=== PATIENT | female | born 1985 | race Two or more races ===

== ENCOUNTER 2016-07-05 14:54 | Inpatient (IN) | payer MEDICAID ==
[2016-07-05] VITALS (7 sets, daily range): BP systolic 116–117; BP diastolic 59–60; PULSE 80–88; RESP 18; TEMP 98–98.1
[~2016-07-05 14:54] MED LIST: PREN1MIS11 PO
--- NOTE | 2016-07-05 15:32 | PD ---
HPI Chief Complaint Low YESENIA from Clinic Date Seen: Jul 05, 2016 Travel History International Travel<30 Days: No Contact w/Intl Traveler<30Days: No History of Present Illness HPI Mrs. Urias is a 30 y/o with gestational diabetes presenting at 36/6 with a low YESENIA from the [facility]. The patient states that she was sent over from clinic after ultrasound showed a BPP of 6 and 8 with an YESENIA of 4 cm. complicated by gestational diabetes. Patient has a log showing blood sugars checked 3 times a day ranging from 90-120 on average. She states that her blood sugars controlled with diet and exercise and is not requiring medication. She reports the baby is active and denies any loss of fluid, vaginal discharge, or bleeding. He has no other complaints and denies any fevers, chills, shortness of breath, chest pain, NVD, or calf tenderness. Of note, patient is Danish-speaking only. History Past Medical History Narrative Medical None Obstetric History Obstetric History 1-Gestational diabetes, classic C section at 42 weeks for failure to progress Past Surgical History Narrative Surgical Classical Family History Narrative Family History Denies significant family history Social History Alcohol Use: No Tobacco Use: No Substance Abuse: No Allergies-Medications (Allergen,Severity, Reaction): Coded Allergies: No Known Allergies (Verified , 06/28/16) Home Meds Active Scripts Butoconazole Nitrate (One Dose (Gynazole-1)2 % Cre Sample #1 Prov:NereidaShanna CNM [employer] P[employer]ER 06/28/16 Reported Medications W/O Vit A W/ Fe Carbo Pack (Citranatal 90 Dha Pack)90-1 & 300 Mg Pack1 Ea PO DAILY #6 BLISTER Ref 0 30 day supply. 05/08/16 Review of Systems General / Constitutional: No: Fever Eyes: No: Blurred Vision HENT: No: Headaches Cardiovascular: No: Chest Pain or Discomfort, Palpitations Respiratory: No: Short of Breath Gastrointestinal: No: Nausea, Vomiting, Diarrhea Genitourinary: No: Dysuria, Discharge, Vaginal Bleeding Musculoskeletal: No: Weakness Skin: No Rash Neurologic: No: Headache Psychiatric: No: Substance Abuse Endocrine: No: Polydipsia Hematologic/Lymphatic: No Lymph Node Enlargement Physical Exam Narrative GENERAL: Well-nourished, well-developed patient. SKIN: Warm and dry. HEAD: Normocephalic and atraumatic. EYES: No scleral icterus. No injection or drainage. ENT: No nasal drainage noted. Mucous membranes pink. Airway patent. NECK: Supple, trachea midline. No JVD. CARDIOVASCULAR: Regular rate and rhythm without murmurs, gallops, or rubs. RESPIRATORY: Breath sounds equal bilaterally. No accessory muscle use. BREASTS: Bilateral exam showed no masses , no retractions, no nipple discharge. ABDOMEN/GI: Abdomen soft, non-tender, bowel sounds present, no rebound, no guarding Gravid to 36 weeks size FHT's: Category: 1 Baseline: 140 Reactive: + Variability: Moderate Decels: None EXTREMITIES: No cyanosis or edema. BACK: Nontender without obvious deformity. No CVA tenderness. NEUROLOGICAL: Awake and alert. Motor and sensory grossly within normal limits. Five out of 5 muscle strength in all muscle groups. Normal speech. Data Data Vital Signs Reviewed: Yes [facility] Medical Record Reviewed: Yes Plan Mrs. Urias is a 30 y/o with gestational diabetes presenting at 36/6 with a low YESENIA from the [facility] 1. IUP at 36w -Continue antepartum care -Category 1 tracing, reassuring -Encouraged oral hydration -Continue PNV -GBS negative 2. Oligohydramnios -[facility] US: BPP 6/8 with YESENIA of 4cm, appropriate anatomy -OB team will admit for observation with plans to re-scan on 07/09/16. At that time clinical decision will be made to proceed with vs routine antepartum care. -CBC, CMP, UA, type/scree, and hold clot ordered 3. Gestational Diabetes -Patient reported BG between 90-120, currently diet controlled -BG checks TID SDW: Dr. Irving Diagnosis Diagnosis: Primary Impression: 36 weeks gestation of Additional Impression: Oligohydramnios Randell Tolentino MD R1 Jul 05, 2016 15:32
[2016-07-05] MEDS ORDERED: SODIUM CHLORIDE 0.9% FLUSH 5 ML FLUSH IVF PRN (15:45)
[2016-07-05] MEDS ORDERED: ONDANSETRON ODT 4 MG TAB PO PRN (15:45)
[2016-07-05] MEDS ORDERED: ACETAMINOPHEN 325 MG TAB PO PRN (15:45)
[2016-07-05] MEDS ORDERED: ONDANSETRON HCL 4 MG/2 ML VIAL IV PRN (15:45)
[2016-07-05] MEDS ORDERED: ALUMINUM/MAGNESIUM/SIMETH 30 ML CUP PO PRN (15:45)
--- NOTE | 2016-07-05 16:18 | HHI.HP ---
HPI Chief Complaint She sent over for evaluation of low amniotic fluid Date Seen: Jul 05, 2016 Travel History International Travel<30 Days: No Contact w/Intl Traveler<30Days: No Known Affected Area: No History of Present Illness HPI Patient is 30-year-old previous with gestational diabetes diet controlled is referred over after BPP done and in the clinic showed an amniotic fluid index of 4,BPP itself was 6 of 8 with a reactive NST would be 8 of 10. She denies complaints or problems ,no contractions bleeding or rupture the membranes. Her NST is reactive today Para: 1 : 2 History Past Medical History Narrative Medical Gestational diabetes diet controlled Obstetric History Obstetric History Previous Past Surgical History Narrative Surgical Previous classical Social History Alcohol Use: No Tobacco Use: No Substance Abuse: No Allergies-Medications (Allergen,Severity, Reaction): Coded Allergies: No Known Allergies (Verified , 06/28/16) Home Meds Active Scripts Butoconazole Nitrate (One Dose (Gynazole-1)2 % Cre Sample #1 Prov:Shanna Padron CNM [employer] TECHNICIAN 06/28/16 Reported Medications W/O Vit A W/ Fe Carbo Pack (Citranatal 90 Dha Pack)90-1 & 300 Mg Pack1 Ea PO DAILY #6 BLISTER Ref 0 30 day supply. 05/08/16 Review of Systems General / Constitutional: No: Fever, Weight Gain, Chills, Other Physical Exam Narrative GENERAL: Well-nourished, well-developed patient. SKIN: Warm and dry. HEAD: Normocephalic and atraumatic. EYES: No scleral icterus. No injection or drainage. ENT: No nasal drainage noted. Mucous membranes pink. Airway patent. NECK: Supple, trachea midline. No JVD. CARDIOVASCULAR: Regular rate and rhythm without murmurs, gallops, or rubs. RESPIRATORY: Breath sounds equal bilaterally. No accessory muscle use. BREASTS: Bilateral exam showed no masses , no retractions, no nipple discharge. ABDOMEN/GI: Abdomen soft, non-tender, bowel sounds present, no rebound, no guarding Gravid to [36-] weeks size Fundal Height: [-35 cm] GENITOURINARY: External Genitalia: intact and normal in appearance BUS glands: [-] Cervix: [-] Not checked today Dilatation: [-] Effacement: [-] Station: [-] Presentation: [-vtx] Membranes: [intact ] Uterine Contractions: [-none] FHT's: Category: [1-] Baseline: [144-] Reactive: [-yes] Variability: [-mod] Decels: [none-] EXTREMITIES: No cyanosis or edema. BACK: Nontender without obvious deformity. No CVA tenderness. NEUROLOGICAL: Awake and alert. Motor and sensory grossly within normal limits. Five out of 5 muscle strength in all muscle groups. Normal speech. Data Data Orders Admit To Inpatient (07/05/16 ) Diet Regular Basic (07/05/16 Dinner) Vital Signs (Adult) VONDA.QSHIFT (07/05/16 15:36) ^ Heart (07/05/16 15:36) Activity Bed Rest With Brp (07/05/16 15:36) Complete Blood Count With Diff (07/05/16 15:36) Urinalysis - C+S If Indicated (07/05/16 15:36) Bedside Glucose . ORDERED (07/05/16 15:36) Acetaminophen (Tylenol) (07/05/16 15:45) Ixkgjsas-Obj-Ubpom-Iron Prenat (Stuartna (07/06/16 09:00) Al-Mag Hy-Si 40-40-4 Mg/Ml Liq (Mag-Al P (07/05/16 15:45) Sodium Chloride 0.9% Flush (Ns Flush) (07/05/16 21:00) Sodium Chloride 0.9% Flush (Ns Flush) (07/05/16 15:45) Ondansetron Odt (Zofran Odt) (07/05/16 15:45) Ondansetron Inj (Zofran Inj) (07/05/16 15:45) Ob/Psych Drug Screen, Urine (07/05/16 15:36) Hold Clot (07/05/16 15:36) Comprehensive Metabolic Panel (07/05/16 15:36) Type And Screen (07/05/16 15:36) Inpatient Certification (07/05/16 ) Ob (2e) Additional Admit Info (07/05/16 16:07) Labs amnisure neg Assessment/Plan Assessment and Plan Patient is a 30-year-old previous 1[ that was a classical] 36 weeks and 6 days now referred over for oligohydramnios YESENIA was 4 on biophysical today. The biophysical itself was 6 of 8 on ultrasound and her NST is reactive, she is not sedrick with patient having oligohydramnios on ultrasound was felt that she needed to be a an inpatient for monitoring purposes and recommend observation over the next 72 hours and at that point repeat her YESENIA is same or lower than would proceed with repeat section , if it is improved then consider discharge home with follow-up closely of the amniotic fluid Real Irving II, MD Jul 05, 2016 16:18
[2016-07-05 17:05] LABS: AUTOMATED NEUTROPHIL # 4.3 TH/MM3 (1.8-7.7); BASOPHIL % 0.2 % (0.0-2.0); EOSINOPHIL # 0.1 TH/MM3 (0-0.4); EOSINOPHIL % 0.9 % (0.0-4.0); HEMATOCRIT 34.9 % (35.0-46.0); LYMPHOCYTE # 1.6 TH/MM3 (1.0-4.8); MEAN CELL VOLUME 72.7 FL (80.0-100.0); MEAN CORPUSCULAR HEMOGLOBIN 23.7 PG (27.0-34.0); MEAN CORPUSCULAR HGB CONC 32.6 % (32.0-36.0); MONO % 6.1 % (0.0-8.0); NEUT % 67.8 % (16.0-70.0); PLATELET COUNT 205 TH/MM3 (150-450); RED CELL DISTRIBUTION WIDTH 18.7 % (11.6-17.2); WHITE BLOOD COUNT 6.3 TH/MM3 (4.0-11.0)
[2016-07-05 17:08] LABS: HEMO FLAGS AUTO DIFF
[2016-07-05 17:11] LABS: BLOOD, URINE NEG (NEG); COMMENT (UR) CULT NOT INDICATED; CULTURE IF INDICATED CULT NOT INDICATED; GLUCOSE,URINE NEG (NEG); KETONE, URINE NEG (NEG); NITRITE,URINE NEG (NEG); PH, URINE 5.5 (5.0-8.5); SQUAMOUS EPITHELIAL CELL URINE 2 /hpf (0-5); URINE COLOR LIGHT-YELLOW (YELLW/STRAW)
[2016-07-05 17:22] LABS: AMPHETAMINE, URINE NEG (NEG); BARBITURATES, URINE NEG (NEG); COCAINE, URINE NEG (NEG)
[2016-07-05 17:37] LABS: ALT (GPT) 16 U/L (10-53); ANION GAP 11 MEQ/L (5-15); AST (GOT) 10 U/L (15-37); BICARBONATE 22.4 MEQ/L (21.0-32.0); BLOOD UREA NITROGEN 8 MG/DL (7-18); CHLORIDE 108 MEQ/L (98-107); GLOMERULAR FILTRATION RATE 189 ML/MIN (>89); POTASSIUM 3.3 MEQ/L (3.5-5.1); SODIUM (NA) 141 MEQ/L (136-145)
[2016-07-05 17:39] LABS: ALKALINE PHOSPHATASE 173 U/L (45-117); TOTAL BILIRUBIN ADULT 0.2 MG/DL (0.2-1.0)
[2016-07-05 18:51] LABS: OVALOCYTES 1+ (NORMAL); PLATELET ESTIMATE SMEAR NORMAL (NORMAL); PLATELET MORPHOLOGY NORMAL (NORMAL); SCAN/DIFF AUTO DIFF CONFIRMED; SPHEROCYTES 1+ (NORMAL)
[2016-07-05] MEDS: SODIUM CHLORIDE 0.9% FLUSH 5 ML FLUSH IVF SCH (21:00)
[2016-07-06] VITALS (8 sets, daily range): BP systolic 100–118; BP diastolic 57–72; PULSE 62–88; RESP 16–18; TEMP 97.5–98.9; O2SAT 97–99
[2016-07-06 02:29] LABS: CHLAMYDIA PCR NOT DETECTED (NOT DETECT); NEISSERIA PCR NOT DETECTED (NOT DETECT)
[2016-07-06] MEDS: MULTIVIT/MIN/PREN/FOL AC/IRON PRENATAL TAB PO SCH (08:10)
--- NOTE | 2016-07-06 08:51 | HHI.HP ---
History & Physical H&P HPI Chief Complaint Low YESENIA from Clinic Date Seen: Jul 05, 2016 Travel History International Travel<30 Days: No Contact w/Intl Traveler<30Days: No History of Present Illness HPI Mrs. Urias is a 30 y/o with gestational diabetes presenting at 36/6 with a low YESENIA from the [facility]. The patient states that she was sent over from clinic after ultrasound showed a BPP of 6 and 8 with an YESENIA of 4 cm. complicated by gestational diabetes. Patient has a log showing blood sugars checked 3 times a day ranging from 90-120 on average. She states that her blood sugars controlled with diet and exercise and is not requiring medication. She reports the baby is active and denies any loss of fluid, vaginal discharge, or bleeding. He has no other complaints and denies any fevers, chills, shortness of breath, chest pain, NVD, or calf tenderness. Of note, patient is Bangladeshi-speaking only. History (Limited) History Past Medical History Narrative Medical None Obstetric History Obstetric History 1-Gestational diabetes, classic C section at 42 weeks for failure to progress Past Surgical History Narrative Surgical Classical Family History Narrative Family History Denies significant family history Social History Alcohol Use: No Tobacco Use: No Substance Abuse: No Allergies-Medications Allergies-Medications (Allergen,Severity, Reaction): Coded Allergies: No Known Allergies (Verified , 06/28/16) Home Meds Active Scripts Butoconazole Nitrate (One Dose (Gynazole-1)2 % Cre Sample #1 Prov:Shanna Padron CNM SOCIAL [employer]IA SENIOR ASSOCIATE 06/28/16 Reported Medications W/O Vit A W/ Fe Carbo Pack (Citranatal 90 Dha Pack)90-1 & 300 Mg Pack1 Ea PO DAILY #6 BLISTER Ref 0 30 day supply. 05/08/16 ROS Review of Systems General / Constitutional: No: Fever Eyes: No: Blurred Vision HENT: No: Headaches Cardiovascular: No: Chest Pain or Discomfort, Palpitations Respiratory: No: Short of Breath Gastrointestinal: No: Nausea, Vomiting, Diarrhea Genitourinary: No: Dysuria, Discharge, Vaginal Bleeding Musculoskeletal: No: Weakness Skin: No Rash Neurologic: No: Headache Psychiatric: No: Substance Abuse Endocrine: No: Polydipsia Hematologic/Lymphatic: No Lymph Node Enlargement Physical Exam Physical Exam Narrative GENERAL: Well-nourished, well-developed patient. SKIN: Warm and dry. HEAD: Normocephalic and atraumatic. EYES: No scleral icterus. No injection or drainage. ENT: No nasal drainage noted. Mucous membranes pink. Airway patent. NECK: Supple, trachea midline. No JVD. CARDIOVASCULAR: Regular rate and rhythm without murmurs, gallops, or rubs. RESPIRATORY: Breath sounds equal bilaterally. No accessory muscle use. BREASTS: Bilateral exam showed no masses , no retractions, no nipple discharge. ABDOMEN/GI: Abdomen soft, non-tender, bowel sounds present, no rebound, no guarding Gravid to 36 weeks size FHT's: Category: 1 Baseline: 140 Reactive: + Variability: Moderate Decels: None EXTREMITIES: No cyanosis or edema. BACK: Nontender without obvious deformity. No CVA tenderness. NEUROLOGICAL: Awake and alert. Motor and sensory grossly within normal limits. Five out of 5 muscle strength in all muscle groups. Normal speech. Data Data Data Vital Signs Reviewed: Yes MDM MDM Medical Record Reviewed: Yes Plan Mrs. Urias is a 30 y/o with gestational diabetes presenting at 36/6 with a low YESENIA from the [facility] 1. IUP at 36w -Continue antepartum care -Category 1 tracing, reassuring -Encouraged oral hydration -Continue PNV -GBS negative 2. Oligohydramnios -[facility] US: BPP 6/8 with YESENIA of 4cm, appropriate anatomy -OB team will admit for observation with plans to re-scan on 07/09/16. At that time clinical decision will be made to proceed with vs routine antepartum care. -CBC, CMP, UA, type/scree, and hold clot ordered 3. Gestational Diabetes -Patient reported BG between 90-120, currently diet controlled -BG checks TID SDW: Dr. Irving Diagnosis Diagnosis: Primary Impression: 36 weeks gestation of Additional Impression: Oligohydramnios Randell Tolentino MD R1 Jul 06, 2016 08:51
[2016-07-06] MEDS: SODIUM CHLORIDE 0.9% FLUSH 5 ML FLUSH IVF SCH (09:00)
--- NOTE | 2016-07-06 09:05 | PD.OB.ANTE ---
Subjective Interval History Patient seen and evaluated by OB team this AM. No acute events overnight with stable BS. She states that she is doing well, but would like to go home. OB team explained her medical problems and plan to observe her through the weekend to re-scan her on Saturday. Patient was agreeable at this time, and all questions were answered. She has no new complaints and denies any fevers, chills, SOB, chest pain, NVD, or calf tenderness. Antepartum ROS: Reports: movement normal, Denies: New complaints, Loss of fluid, Vaginal bleeding, Contractions Objective Vital Signs Vital Signs Date Time Temp Pulse Resp B/P Pulse Ox O2 Delivery O2 Flow Rate FiO2 07/06/16 07:23 98.9 16 07/06/16 07:18 88 100/57 07/06/16 00:15 18 07/05/16 23:29 88 116/59 07/05/16 19:30 18 07/05/16 17:59 18 07/05/16 17:58 80 117/60 07/05/16 17:53 98.0 07/05/16 17:53 98.1 07/05/16 17:15 18 07/05/16 16:00 18 Lab & Micro Results Test 07/05/16 16:15 White Blood Count 6.3 TH/MM3 Red Blood Count 4.80 MIL/MM3 Hemoglobin 11.4 GM/DL Hematocrit 34.9 % Mean Corpuscular Volume 72.7 FL Mean Corpuscular Hemoglobin 23.7 PG Mean Corpuscular Hemoglobin 32.6 % Concent Red Cell Distribution Width 18.7 % Platelet Count 205 TH/MM3 Mean Platelet Volume 8.0 FL Neutrophils (%) (Auto) 67.8 % Lymphocytes (%) (Auto) 25.0 % Monocytes (%) (Auto) 6.1 % Eosinophils (%) (Auto) 0.9 % Basophils (%) (Auto) 0.2 % Neutrophils # (Auto) 4.3 TH/MM3 Lymphocytes # (Auto) 1.6 TH/MM3 Monocytes # (Auto) 0.4 TH/MM3 Eosinophils # (Auto) 0.1 TH/MM3 Basophils # (Auto) 0.0 TH/MM3 CBC Comment AUTO DIFF Differential Total Cells Counted Differential Comment AUTO DIFF CONFIRMED Platelet Estimate NORMAL Platelet Morphology Comment NORMAL Spherocytes 1+ Ovalocytes 1+ Urine Color LIGHT-YELLOW Urine Turbidity CLEAR Urine pH 5.5 Urine Specific [place] 1.011 Urine Protein NEG mg/dL Urine Glucose (UA) NEG mg/dL Urine Ketones NEG mg/dL Urine Occult Blood NEG Urine Nitrite NEG Urine Bilirubin NEG Urine Urobilinogen LESS THAN 2.0 MG/DL Urine Leukocyte Esterase NEG Urine RBC 1 /hpf Urine WBC 1 /hpf Urine Squamous Epithelial 2 /hpf Cells Microscopic Urinalysis Comment CULT NOT INDICATED Sodium Level 141 MEQ/L Potassium Level 3.3 MEQ/L Chloride Level 108 MEQ/L Carbon Dioxide Level 22.4 MEQ/L Anion Gap 11 MEQ/L Blood Urea Nitrogen 8 MG/DL Creatinine 0.40 MG/DL Estimat Glomerular Filtration 189 ML/MIN Rate Random Glucose 77 MG/DL Calcium Level 8.8 MG/DL Total Bilirubin 0.2 MG/DL Aspartate Amino Transf 10 U/L (AST/SGOT) Alanine Aminotransferase 16 U/L (ALT/SGPT) Alkaline Phosphatase 173 U/L Total Protein 6.5 GM/DL Albumin 2.7 GM/DL Urine Opiates Screen NEG Urine Barbiturates Screen NEG Urine Amphetamines Screen NEG Urine Benzodiazepines Screen NEG Urine Cocaine Screen NEG Urine Cannabinoids Screen NEG Blood Type O POSITIVE Antibody Screen NEGATIVE Band and Hold HOLD CLOT IN BB Chlamydia trachomatis DNA NOT DETECTED (PCR) Neisseria gonorrhoeae DNA NOT DETECTED (PCR) Physical Exam GENERAL: Well-nourished, well-developed patient. CARDIOVASCULAR: Regular rate and rhythm without murmurs, gallops, or rubs. RESPIRATORY: Breath sounds equal bilaterally. No accessory muscle use. ABDOMEN/GI: Abdomen soft, non-tender. Fundus: 37 FHT's: Category: 1 Baseline: 140 Reactive: + Variability: Moderate Decels: None EXTREMITIES: No cyanosis or edema, non-tender, without signs of DVT. Assessment and Plan Assessment and Plan Mrs. Urias is a 30 y/o with gestational diabetes presenting at 36/6 with a low YESENIA from the [facility] 1. IUP at 36w -Continue antepartum care -Category 1 tracing, reassuring -Encouraged oral hydration -Continue PNV -GBS negative 2. Oligohydramnios -[facility] US: BPP 6/8 with YESENIA of 4cm, appropriate anatomy -OB team will admit for observation with plans to re-scan on 07/09/16. At that time clinical decision will be made to proceed with vs routine antepartum care. -CBC: WBC 6.3, H/H 11.4/34.9, platelets 205 -CMP: Potassium 3.3 (repleted), alk phos 173 -UA: WNL -G/C: Negative 3. Gestational Diabetes -Patient reported BG between 90-120, currently diet controlled -BG checks TID, over last 24hr 80-134 SDW: Dr. Aristides Tolentino,Randell Lee MD R1 Jul 06, 2016 09:05
[2016-07-06] MEDS ORDERED: LACTATED RINGER'S 1000 ML INJ 1,000 ML IV ONE (16:44)
--- NOTE | 2016-07-06 16:47 | HHI.PR ---
Subjective Remarks This 30-year-old previous section admitted for oligohydramnios [facility] showed an YESENIA of 4 she was admitted for IV hydration and reevaluation Repeat ultrasound today shows an YESENIA of 2.5 In view of [id number] hydramnios at 37 weeks we'll proceed with repeat section Via an parts interpreter the procedure indications and complications were discussed with the patient her questions were answered Will proceed Objective - Vital Signs Date Time Temp Pulse Resp B/P Pulse Ox O2 Delivery O2 Flow Rate FiO2 07/06/16 07:23 98.9 16 07/06/16 07:18 88 100/57 Result Diagram: 07/05/16 1615 07/05/16 1615 Brigette Goldsmith MD Jul 06, 2016 16:47
[2016-07-06] MEDS ORDERED: LACTATED RINGER'S 1000 ML INJ 1,000 ML IV SCH (17:14)
[2016-07-06] MEDS ORDERED: ceFAZolin 2 GM PREMIX 50 ML IV SCH (17:45)
[2016-07-06] MEDS ORDERED: OXYTOCIN 10 UNIT/ML AMP ONE (18:08)
[2016-07-06] MEDS ORDERED: CITRIC ACID-SODIUM CITRATE LIQ 30 ML UDC PO SCH (18:15)
[2016-07-06] MEDS ORDERED: EPIDURAL-DIPHENHYDRAMINE HCL 50 MG CAP PO PRN (18:25)
[2016-07-06] MEDS ORDERED: EPIDURAL-NO SYSTEMIC NARCOTICS XX PRN (18:25)
[2016-07-06] MEDS ORDERED: EPIDURAL-DO NOT ADMINISTER ANTICOAGULANTS XX PRN (18:25)
[2016-07-06] MEDS ORDERED: EPIDURAL-DIPHENHYDRAMINE HCL 50 MG/ML VIAL IV PUSH PRN (18:25)
[2016-07-06] MEDS ORDERED: EPIDURAL-NALOXONE HCL 0.4 MG/ML AMP IV PRN (18:25)
[2016-07-06] MEDS ORDERED: MORPHINE SULFATE PF 5 MG/10 ML VIAL ONE (19:29)
[2016-07-06] MEDS ORDERED: OXYTOCIN 30 UNITS-500ML PREMIX 500 ML IV ONE (19:30)
[2016-07-06] MEDS ORDERED: KETOROLAC TROMETHAMINE 60 MG/2 ML (IM) VIAL IM PRN (19:30)
[2016-07-06] MEDS ORDERED: ONDANSETRON HCL 4 MG/2 ML VIAL IV PUSH PRN (19:30)
[2016-07-06] MEDS ORDERED: SODIUM CHLORIDE 0.9% FLUSH 5 ML FLUSH IV PRN (19:30)
[2016-07-06] MEDS ORDERED: ACETAMINOPHEN 325 MG TAB PO PRN (19:30)
[2016-07-06] MEDS ORDERED: ZOLPIDEM TARTRATE 5 MG TAB PO PRN (19:30)
[2016-07-06] MEDS ORDERED: ACETAMINOPHEN 1000 MG/100 ML VIAL IV ONE (19:30)
[2016-07-06] MEDS ORDERED: oxyCODONE/ACETAMINOPHEN 5 MG/325 MG TAB PO PRN (19:30)
--- NOTE | 2016-07-06 19:40 | PD.OP ---
Operative Report Date of Surgery: Jul 06, 2016 Preoperative Diagnosis: Intrauterine at 37 weeks Oligohydramnios Gestational diabetes Multiparity Postoperative Diagnosis: Same Procedure: Repeat low segment transverse section Bilateral tubal ligation Anesthesia: Spinal Surgeon: Brigette Garibay Funeral Arrangement Director(s): OR staff Resident Surgeon: None Operation and Findings: Anesthesiologist:: (Dr. Astudillo ) Estimated blood loss: (600 cc ) Sponge and instrument count: (Correct ) Drains: (None ) Complications: (None ) Indications for procedure: (Previous 1 oligohydramnios ) Findings: (Viable female weight is 20/5/40 grams equaling 5 pounds 9.6 ounces Apgars of 8 at 1 minute 9 at 5 minutes ) Timeout done The patient was taken to the operating room after appropriate levels of spinal anesthesia were achieved she was placed in the supine position. A Oliveira catheter was inserted under sterile conditions and draining adequate clear urine. Intermittent compression hoses were placed and functioning. Bovie pad was placed and grounded. The abdomen was shaved prepped and draped in the usual sterile fashion. A transverse Pfannenstiel incision was made carried down through the skin subcutaneous tissue. The fascia was opened transversely. from the muscles in the midline. The rectus muscles were . Peritoneal cavity opened and the abdominal cavity entered. The bladder flap was taken down transversely and a low segment transverse incision made into the lower uterine segment. The fluid was (clear ). The infant was vertex. Kiwi vacuum was required placed on the flexion point and the vertex delivered into the incision The vertex was delivered nose and mouth suctioned well the remainder of the body was then delivered. Cord doubly clamped and cut and the infant handed over to the awaiting nursing staff. The placenta spontaneously delivered intact with fundal massage. The uterus was then exteriorized cleaned of excessive blood and debris. The incision was then closed with 0 chromic in a continuous interlocking stitch. Single-layer closure No active bleeding. Tubes and ovaries were inspected and found to be normal. Attention was then turned to the tubal ligation the right tube was grasped in the ampullary portion and a vascular portion of the nasal salpinx was traversed distal and proximal ties of O plain suture were placed and the intervening tube was removed the exposed ostia were cauterized. Same procedure was done on the left side tube grasped in the ampullary portion and an avascular portion of the nasal salpinx was traversed distal and proximal ties of O plain suture was placed in the intervening tube was removed the exposed ostia were cauterized The abdominal cavity was then irrigated. The uterus placed back into the abdomen. Paracolic gutters cleaned of excessive blood and debris. Interceed was then placed over the incision and the anterior surface of the uterus in an inverted T. The peritoneum was then closed with 2-0 Vicryl. The muscles reapproximated. Inspection of the muscle bed demonstrated no bleeding. Intercede placed over the muscle at the midline. The fascia was then closed with 0 Vicryl in a continuous stitch. The subcutaneous tissue was irrigated bleeders controlled with Bovie. Leola's fascia closed with 2-0 Vicryl. The skin was closed using (subcuticular stitch with 3-0 Monocryl ). The uterus was massaged clearing blood and clots. The patient was cleaned. Pressure dressing and abdominal binder placed. Patient then transferred to the recovery room in stable condition, where her vital signs are (stable ). Urine is clear and adequate. Baby transferred to the nursery in stable condition. Brigette Goldsmith MD Jul 06, 2016 19:40
[2016-07-07] VITALS (8 sets, daily range): BP systolic 95–98; BP diastolic 56–60; PULSE 75–78; RESP 16–18; TEMP 97.7–97.8
[2016-07-07] MEDS ORDERED: LACTATED RINGER'S 1000 ML INJ 1,000 ML IV SCH (00:26)
[2016-07-07] MEDS ORDERED: OXYTOCIN 30 UNITS-500ML PREMIX 500 ML IV PRN (05:30)
[2016-07-07 05:46] LABS: AUTOMATED NEUTROPHIL # 4.9 TH/MM3 (1.8-7.7); BASOPHIL % 0.3 % (0.0-2.0); EOSINOPHIL # 0.1 TH/MM3 (0-0.4); EOSINOPHIL % 0.8 % (0.0-4.0); HEMATOCRIT 32.7 % (35.0-46.0); LYMPH % 17.9 % (9.0-44.0); LYMPHOCYTE # 1.2 TH/MM3 (1.0-4.8); MEAN CELL VOLUME 73.6 FL (80.0-100.0); MEAN CORPUSCULAR HEMOGLOBIN 23.9 PG (27.0-34.0); MEAN CORPUSCULAR HGB CONC 32.5 % (32.0-36.0); PLATELET COUNT 173 TH/MM3 (150-450); RED BLOOD COUNT 4.44 MIL/MM3 (4.00-5.30); RED CELL DISTRIBUTION WIDTH 18.8 % (11.6-17.2); WHITE BLOOD COUNT 6.4 TH/MM3 (4.0-11.0)
[2016-07-07 05:50] LABS: HEMO FLAGS AUTO DIFF
[2016-07-07] MEDS: MULTIVIT/MIN/PREN/FOL AC/IRON PRENATAL TAB PO SCH (08:33)
[2016-07-07] MEDS: IBUPROFEN 600 MG TAB PO PRN ×2 (08:33→16:23)
[2016-07-07] MEDS: oxyCODONE/ACETAMINOPHEN 5 MG/325 MG TAB PO PRN ×2 (08:34→16:23)
[2016-07-07] MEDS: SODIUM CHLORIDE 0.9% FLUSH 5 ML FLUSH IV SCH (09:00)
--- NOTE | 2016-07-07 09:00 | HHI.OB ---
Subjective Post Operative Day: 1 Remarks Postoperative day number 1. AFVSS overnight. Pain controlled. Incision not draining. Decreased lochia. Denies dysuria. No breast tenderness. She is feeding the baby via breast. Appetite good. No nausea or vomiting. Positive flatus. Negative bowel movement. Ambulating well. Denies calf pain, shortness of breath, or cough. Otherwise, she is doing well this morning and has no other complaints. Objective Vitals/I&O Vital Signs Date Time Temp Pulse Resp B/P Pulse Ox O2 Delivery O2 Flow Rate FiO2 07/07/16 05:00 97.8 78 16 98/56 07/07/16 04:30 97.8 16 98/56 07/07/16 04:30 78 07/07/16 01:00 97.7 75 16 95/60 07/06/16 20:13 98 07/06/16 20:12 97.5 62 18 118/70 07/06/16 20:00 62 18 112/68 07/06/16 20:00 99 07/06/16 19:45 97 07/06/16 19:45 108/72 07/06/16 19:45 68 18 07/06/16 19:30 98 07/06/16 19:30 97.6 07/06/16 19:30 66 18 109/62 Result Diagram: 07/07/16 0531 07/05/16 1615 Objective Remarks GENERAL: Well-nourished, well-developed patient. CARDIOVASCULAR: Regular rate and rhythm without murmurs, gallops, or rubs. RESPIRATORY: Breath sounds equal bilaterally. No accessory muscle use. ABDOMEN/GI: Abdomen soft, non-tender, bowel sounds present. Incision: Clean, dry and intact. Fundus: Firm, non-tender at umbilicus. GENITOURINARY: Light to moderate bleeding. EXTREMITIES: No cyanosis or edema, non-tender, without signs of DVT. Medications and IVs Current Medications Medications (Trade) Dose Ordered Sig/Tereso Route Start Time Stop Time Status Last Admin (Tylenol) 650 mg Q4H PRN PO 07/05/16 15:45 (Stuartnatal Plus 3 ) 1 tab DAILY PO 07/06/16 09:00 07/07/16 08:33 (Mag-Al Plus Susp Liq) 30 ml QID PRN PO 07/05/16 15:45 (Zofran Odt) 4 mg Q6H PRN PO 07/05/16 15:45 Ondansetron HCl 4 mg 4 mg Q6H PRN IV 07/05/16 15:45 Lactated Ringer's 1,000 ml @ 150 mls/hr Q6H40M IV 07/06/16 17:14 (Lr 1000 ml Inj) 1,000 ml @ 100 mls/hr Q10H IV 07/07/16 00:26 07/07/16 20:25 07/07/16 07:25 (NS Flush) 2 ml BID IV 07/06/16 21:00 (NS Flush) 2 ml UNSCH PRN IV 07/06/16 19:30 (Mylicon Chew) 80 mg QID PRN PO 07/06/16 19:30 (Tylenol) 650 mg Q6H PRN PO 07/06/16 19:30 (Motrin) 600 mg Q6H PRN PO 07/06/16 19:30 07/07/16 08:33 (Toradol Inj) 30 mg Q6H PRN IM 07/06/16 19:30 07/07/16 19:29 (Percocet 5-325 Mg) 1 tab Q4H PRN PO 07/06/16 19:30 Oxycodone/ Acetaminophen 2 tab 2 tab Q4H PRN PO 07/06/16 19:30 07/07/16 08:34 (Ancef Inj/NS Inj) 100 ml @ 200 mls/hr Q8H IV 07/07/16 02:00 07/07/16 10:29 07/07/16 07:25 (Marta-Colace) 2 tab Q12H PRN PO 07/06/16 19:30 (Ambien) 5 mg HS PRN PO 07/06/16 19:30 (M-M-R Ii Inj) 0.5 ml ONCE ONCE SQ 07/07/16 16:00 07/07/16 16:01 (Boostrix Inj) 0.5 ml ONCE ONCE IM 07/07/16 16:00 07/07/16 16:01 (Zofran Inj) 4 mg Q6H PRN IV PUSH 07/06/16 19:30 Miscellaneous Information NO SYSTEMIC NARCOTICS TO BE GIVEN FO... UNSCH PRN XX 07/06/16 18:25 07/07/16 18:24 (Narcan Inj) 0.4 mg UNSCH PRN IV 07/06/16 18:25 07/07/16 18:24 (Benadryl Inj) 25 mg Q6H PRN IV PUSH 07/06/16 18:25 07/07/16 18:24 (Benadryl) 50 mg Q6H PRN PO 07/06/16 18:25 07/07/16 18:24 Miscellaneous Information ALL NURSING DEPARTMENTS UNSCH PRN XX 07/06/16 18:25 07/07/16 18:24 Assessment/Plan Problem List: (1) care following delivery (2) delivery delivered Assessment and Plan 30 y/o female who is POD# 1 s/p CXN. -Continue routine care. -Percocet and Motrin PRN pain. -Encouraged OOB. Advised pelvic rest for 6 wks. Will need a f/u appt. in 1 wk for incision check. -Re: ctrl, undecided at this time. -D/c in 1-2 more days. wdw OB attending Discharge Planning Discharge next one to 2 days Pankaj Alfaro MD R2 Jul 07, 2016 09:00
[2016-07-07 10:03] LABS: SCAN/DIFF AUTO DIFF CONFIRMED
[2016-07-07] MEDS ORDERED: ceFAZolin 1,000 MG/NS 100 ML IV SCH ×2 (13:00)
[2016-07-07] MEDS: SIMETHICONE 80 MG CHEWABLE TAB PO PRN ×2 (15:06→21:42)
[2016-07-07] MEDS ORDERED: MEASLES, MUMPS, RUBELLA VACCINE 0.5 ML VIAL SQ ONE (16:00)
[2016-07-07] MEDS ORDERED: DIPHTH/TETANUS/ACEL PERTUSSIS (BOOSTER) 0.5 ML VIAL/PFS IM ONE (16:00)
[2016-07-07] MEDS: DOCUSATE SODIUM 50 MG/SENNA 8.6 MG TAB PO PRN (21:42)
[2016-07-08] MEDS: IBUPROFEN 600 MG TAB PO PRN ×3 (02:44→18:36)
[2016-07-08] MEDS: oxyCODONE/ACETAMINOPHEN 5 MG/325 MG TAB PO PRN ×3 (02:44→18:36)
[2016-07-08 07:10] VITALS: BP 107/64; PULSE 81; RESP 17; TEMP 98
[2016-07-08] MEDS ORDERED: SENN1TAB PO (08:02)
[2016-07-08] MEDS ORDERED: IBUP-232 PO (08:02)
[2016-07-08] MEDS ORDERED: OXYC1TAB63 PO (08:02)
--- NOTE | 2016-07-08 08:18 | HHI.OB ---
Subjective Post Operative Day: 2 Remarks Postoperative day number 2. AFVSS overnight. Pain controlled. Incision not draining. Decreased lochia. Denies dysuria. No breast tenderness. She is feeding the baby via breast. Appetite good. No nausea or vomiting. Positive flatus. Negative bowel movement. Ambulating well. Denies calf pain, shortness of breath, or cough. Otherwise, she is doing well this morning and has no other complaints. Objective Vitals/I&O Vital Signs Date Time Temp Pulse Resp B/P Pulse Ox O2 Delivery O2 Flow Rate FiO2 07/08/16 07:10 98.0 81 17 107/64 07/07/16 15:10 18 07/07/16 14:20 18 07/07/16 13:40 16 07/07/16 11:15 17 07/07/16 10:50 16 Result Diagram: 07/07/16 0531 07/05/16 1615 Objective Remarks GENERAL: Well-nourished, well-developed patient. CARDIOVASCULAR: Regular rate and rhythm without murmurs, gallops, or rubs. RESPIRATORY: Breath sounds equal bilaterally. No accessory muscle use. ABDOMEN/GI: Abdomen soft, non-tender, bowel sounds present. Incision: Clean, dry and intact. Fundus: Firm, non-tender at umbilicus. GENITOURINARY: Light to moderate bleeding. EXTREMITIES: No cyanosis or edema, non-tender, without signs of DVT. Medications and IVs Current Medications Medications (Trade) Dose Ordered Sig/Tereso Route Start Time Stop Time Status Last Admin (Tylenol) 650 mg Q4H PRN PO 07/05/16 15:45 (Stuartnatal Plus 3 ) 1 tab DAILY PO 07/06/16 09:00 07/07/16 08:33 (Mag-Al Plus Susp Liq) 30 ml QID PRN PO 07/05/16 15:45 (Zofran Odt) 4 mg Q6H PRN PO 07/05/16 15:45 Ondansetron HCl 4 mg 4 mg Q6H PRN IV 07/05/16 15:45 (Lr 1000 ml Inj) 1,000 ml @ 150 mls/hr Q6H40M IV 07/06/16 17:14 (NS Flush) 2 ml BID IV 07/06/16 21:00 (NS Flush) 2 ml UNSCH PRN IV 1/6/17 19:30 (Mylicon Chew) 80 mg QID PRN PO 07/06/16 19:30 07/07/16 21:42 (Tylenol) 650 mg Q6H PRN PO 07/06/16 19:30 (Motrin) 600 mg Q6H PRN PO 07/06/16 19:30 07/08/16 02:44 (Percocet 5-325 Mg) 1 tab Q4H PRN PO 07/06/16 19:30 07/08/16 06:35 (Percocet 5-325 Mg) 2 tab Q4H PRN PO 07/06/16 19:30 07/08/16 02:44 (Marta-Colace) 2 tab Q12H PRN PO 07/06/16 19:30 07/07/16 21:42 (Ambien) 5 mg HS PRN PO 07/06/16 19:30 Ondansetron HCl 4 mg 4 mg Q6H PRN IV PUSH 07/06/16 19:30 (Ancef Inj/NS Inj) 100 ml @ 200 mls/hr Q8H IV 07/07/16 13:00 07/07/16 13:40 (Flu (Quadrivalent) Vaccine Inj) 0.5 ml ONCE ONCE IM 07/08/16 10:00 07/08/16 10:01 07/08/16 06:29 Assessment/Plan Problem List: (1) care following delivery (2) delivery delivered Assessment and Plan 30 y/o female who is POD# 2 s/p CXN. -Continue routine care. -Percocet and Motrin PRN pain. -Encouraged OOB. Advised pelvic rest for 6 wks. Will need a f/u appt. in 1 wk for incision check. -Re: ctrl, undecided at this time. -D/c home today wdw OB attending Discharge Planning Discharge home today Pankaj Alfaro MD R2 Jul 08, 2016 08:18
--- NOTE | 2016-07-08 08:19 | HHI.DCPOC ---
Discharge Care Plan Diagnosis: (1) delivery delivered (2) care following delivery Report Symptoms to Your Doctor -Temperate above 100.5 degrees -Redness, of incision or excessive or foul smelling drainage -Unusual pain or calf pain -Increased vaginal bleeding -Painful or difficulty urinating -Feelings of extreme sadness or anxiety after 2 weeks Goals to Promote Your Health * To prevent worsening of your condition and complications * To maintain your health at the optimal level Pelvic rest 6 weeks Avoid lifting anything heavier than baby until cleared by OB Follow-up with OB in 1 week to examine incision Directions to Meet Your Goals Take your medications as prescribed Follow your dietary instruction Follow activity as directed Ensure plenty of rest for recovery Drink fluids for hydration Keep your appointments as scheduled Take your immunizations and boosters as scheduled If your symptoms worsen call your PCP, if no PCP go to Urgent Care Center or Emergency Room Smoking is Dangerous to Your Health. Avoid second hand smoke Call the 24-hour crisis hotline for domestic abuse at Pankaj Alfaro MD R2 Jul 08, 2016 08:19
[2016-07-08] MEDS: MULTIVIT/MIN/PREN/FOL AC/IRON PRENATAL TAB PO SCH (08:58)
[2016-07-08] MEDS: SODIUM CHLORIDE 0.9% FLUSH 5 ML FLUSH IV SCH (09:00)
--- NOTE | 2016-07-08 09:06 | HHI.OB ---
Subjective Post Operative Day: 2 Remarks Postoperative this patient diagnosis section repeat for a low amniotic fluid volume. She is doing well with progressive advancement diet and ambulation, showed no sign of pulmonary or thromboembolic complication. She is tolerating her diet and is progressing toward discharge home tomorrow, the patient seen with the family medicine residents and agree with their evaluation and plan this patient. Objective Vitals/I&O Vital Signs Date Time Temp Pulse Resp B/P Pulse Ox O2 Delivery O2 Flow Rate FiO2 07/08/16 07:10 98.0 81 17 107/64 07/07/16 15:10 18 07/07/16 14:20 18 07/07/16 13:40 16 07/07/16 11:15 17 07/07/16 10:50 16 Result Diagram: 07/07/16 0531 07/05/16 1615 Objective Remarks GENERAL: Well-nourished, well-developed patient. CARDIOVASCULAR: Regular rate and rhythm without murmurs, gallops, or rubs. RESPIRATORY: Breath sounds equal bilaterally. No accessory muscle use. ABDOMEN/GI: Abdomen soft, non-tender, bowel sounds present. Incision: Clean, dry and intact. Fundus: Firm, non-tender at umbilicus. GENITOURINARY: Light to moderate bleeding. EXTREMITIES: No cyanosis or edema, non-tender, without signs of DVT. Medications and IVs Current Medications Medications (Trade) Dose Ordered Sig/Tereso Route Start Time Stop Time Status Last Admin (Tylenol) 650 mg Q4H PRN PO 07/05/16 15:45 (Stuartnatal Plus 3 ) 1 tab DAILY PO 07/06/16 09:00 07/08/16 08:58 (Mag-Al Plus Susp Liq) 30 ml QID PRN PO 07/05/16 15:45 (Zofran Odt) 4 mg Q6H PRN PO 07/05/16 15:45 Ondansetron HCl 4 mg 4 mg Q6H PRN IV 07/05/16 15:45 (Lr 1000 ml Inj) 1,000 ml @ 150 mls/hr Q6H40M IV 07/06/16 17:14 (NS Flush) 2 ml BID IV 07/06/16 21:00 (NS Flush) 2 ml UNSCH PRN IV 07/06/16 19:30 (Mylicon Chew) 80 mg QID PRN PO 07/06/16 19:30 07/07/16 21:42 (Tylenol) 650 mg Q6H PRN PO 07/06/16 19:30 (Motrin) 600 mg Q6H PRN PO 07/06/16 19:30 07/08/16 02:44 (Percocet 5-325 Mg) 1 tab Q4H PRN PO 07/06/16 19:30 07/08/16 06:35 (Percocet 5-325 Mg) 2 tab Q4H PRN PO 07/06/16 19:30 07/08/16 02:44 (Marta-Colace) 2 tab Q12H PRN PO 07/06/16 19:30 07/07/16 21:42 (Ambien) 5 mg HS PRN PO 07/06/16 19:30 Ondansetron HCl 4 mg 4 mg Q6H PRN IV PUSH 07/06/16 19:30 (Ancef Inj/NS Inj) 100 ml @ 200 mls/hr Q8H IV 07/07/16 13:00 07/07/16 13:40 (Flu (Quadrivalent) Vaccine Inj) 0.5 ml ONCE ONCE IM 07/08/16 10:00 07/08/16 10:01 07/08/16 06:29 Assessment/Plan Problem List: (1) care following delivery (2) delivery delivered Assessment and Plan 30 y/o female who is POD# 2 s/p CXN. -Continue routine care. -Percocet and Motrin PRN pain. -Encouraged OOB. Advised pelvic rest for 6 wks. Will need a f/u appt. in 1 wk for incision check. -Re: ctrl, undecided at this time. -D/c home today wdw OB attending Discharge Planning Discharge home today Real Irving II, MD Jul 08, 2016 09:06
[2016-07-08] MEDS ORDERED: INFLUENZA VIRUS VACCINE (QUADRIVALENT) 0.5 ML SYR IM ONE (10:00)
[2016-07-08] MEDS: DOCUSATE SODIUM 50 MG/SENNA 8.6 MG TAB PO PRN (18:36)
[2016-07-08 18:53] VITALS: TEMP 100.1
[2016-07-08 20:00] VITALS: BP 115/67; PULSE 98; RESP 16; TEMP 99.5
[2016-07-08 23:34] VITALS: TEMP 98.4
[2016-07-09] MEDS: IBUPROFEN 600 MG TAB PO PRN ×2 (04:10→14:04)
[2016-07-09] MEDS: oxyCODONE/ACETAMINOPHEN 5 MG/325 MG TAB PO PRN ×2 (04:10→08:40)
[2016-07-09 07:45] VITALS: BP 104/70; PULSE 80; RESP 18; TEMP 98.1
[2016-07-09] MEDS: MULTIVIT/MIN/PREN/FOL AC/IRON PRENATAL TAB PO SCH (08:40)
--- NOTE | 2016-07-09 09:54 | HHI.OB ---
Subjective Remarks 30 y/o POD 3 after . Doing well this morning. Lochia is minimal. Had bowel movement. Walking without much difficulty. Undecided on control. Has OB follow up appt. Encouraging exclusive . No chest pain, shortness of breath, abdominal pain, calf tenderness. (Perico Mccallum MD R2) Objective Vitals/I&O Vital Signs Date Time Temp Pulse Resp B/P Pulse Ox O2 Delivery O2 Flow Rate FiO2 07/09/16 07:45 98.1 07/09/16 07:45 80 18 104/70 07/08/16 23:34 98.4 07/08/16 20:00 99.5 98 16 115/67 07/08/16 18:53 100.1 (Perico Mccallum MD R2) Result Diagram: 07/07/16 0531 07/05/16 1615 Objective Remarks GENERAL: Well-nourished, well-developed patient. CARDIOVASCULAR: Regular rate and rhythm without murmurs, gallops, or rubs. RESPIRATORY: Breath sounds equal bilaterally. No accessory muscle use. ABDOMEN/GI: Abdomen soft, non-tender, bowel sounds present. Incision: Clean, dry and intact. Fundus: Firm, non-tender at umbilicus. GENITOURINARY: Light to moderate bleeding. EXTREMITIES: No cyanosis or edema, non-tender, without signs of DVT. Medications and IVs Current Medications Medications (Trade) Dose Ordered Sig/Tereso Route Start Time Stop Time Status Last Admin (Tylenol) 650 mg Q4H PRN PO 07/05/16 15:45 (Stuartnatal Plus 3 ) 1 tab DAILY PO 07/06/16 09:00 07/09/16 08:40 (Mag-Al Plus Susp Liq) 30 ml QID PRN PO 07/05/16 15:45 (Zofran Odt) 4 mg Q6H PRN PO 07/05/16 15:45 Ondansetron HCl 4 mg 4 mg Q6H PRN IV 07/05/16 15:45 (Lr 1000 ml Inj) 1,000 ml @ 150 mls/hr Q6H40M IV 07/06/16 17:14 (NS Flush) 2 ml BID IV 07/06/16 21:00 (NS Flush) 2 ml UNSCH PRN IV 07/06/16 19:30 (Mylicon Chew) 80 mg QID PRN PO 07/06/16 19:30 07/07/16 21:42 (Tylenol) 650 mg Q6H PRN PO 07/06/16 19:30 (Motrin) 600 mg Q6H PRN PO 07/06/16 19:30 07/09/16 04:10 (Percocet 5-325 Mg) 1 tab Q4H PRN PO 07/06/16 19:30 07/08/16 06:35 (Percocet 5-325 Mg) 2 tab Q4H PRN PO 07/06/16 19:30 07/09/16 08:40 (Mrata-Colace) 2 tab Q12H PRN PO 07/06/16 19:30 07/08/16 18:36 (Ambien) 5 mg HS PRN PO 07/06/16 19:30 Ondansetron HCl 4 mg 4 mg Q6H PRN IV PUSH 07/06/16 19:30 (Ancef Inj/NS Inj) 100 ml @ 200 mls/hr Q8H IV 07/07/16 13:00 07/07/16 13:40 (Perico Mccallum MD R2) Assessment/Plan Problem List: (1) care following delivery (2) delivery delivered Assessment and Plan 30 y/o female who is POD# 2 s/p CXN. -Continue routine care. -Percocet and Motrin PRN pain. -Encouraged OOB. Advised pelvic rest for 6 wks. Will need a f/u appt. in 1 wk for incision check. -Re: ctrl, undecided at this time. -D/c home today dw Dr. Maloney Discharge Planning Discharge home today (Perico Mccallum MD R2) Attending Attestation The exam, history, and the medical decision-making described in the above note were completed with the assistance of the resident provider. I reviewed and agree with the findings presented. I attest that I had a [id number] encounter with the patient on the same day, and personally performed and documented my assessment and findings in the medical record. (Jan Maloney MD) Perico Mccallum MD R2 Jul 09, 2016 09:54 Jan Maloney MD Jul 09, 2016 10:04
[2016-07-10 14:42] LABS: BATH SALTS (MDPV) UR NEG (NEG); ECSTASY (MDMA) UR NEG (NEG); HEROIN (6-ACETYLMORPHINE) UR NEG (NEG); K2 SPICE UR NEG (NEG); OBMETHADONE UR NEG (NEG); OXYCODONE (PERCODAN) NEG (NEG); PHENCYCLIDINE URINE NEG (NEG)
== END 2016-07-09 14:11 | disposition home or self-care (01) | DRG 766 ==
LOC: HOBED 14:54 → H2EA 16:07 → H1EA 07-06 20:31
PROVIDERS: ADMIT Obstetrics & Gynecology Maternal & Fetal Medicine; ATTEND Obstetrics & Gynecology Maternal & Fetal Medicine
PROC: 10D00Z1 Extraction of Products of Conception, Low, Open Approach (ICD-10-PCS; principal; 2016-07-06)
PROC: 0UB70ZZ Excision of Bilateral Fallopian Tubes, Open Approach (ICD-10-PCS; 2016-07-06)
PROC: 3E0P05Z Introduction of Adhesion Barrier into Female Reproductive, Open Approach (ICD-10-PCS; 2016-07-06)
DX: O41.03X0 Oligohydramnios, third trimester, not applicable or unspecified (principal); O24.420 Gestational diabetes mellitus in childbirth, diet controlled; O34.211 Maternal care for low transverse scar from previous cesarean delivery; Z23 Encounter for immunization; Z30.2 Encounter for sterilization; Z3A.37 37 weeks gestation of pregnancy; Z37.0 Single live birth
CPT/HCPCS: 59025; 76815; 80053; 80307; 81001; 82948; 84112; 85025; 86850; 86900; 86901; 87491; 87591; 88302; 88307; 90686; 90715; 99284; G0481; J0131; J0690; J2274; J2590; J7120; Q2038